=== PATIENT | male | born 1950 | race Caucasian/White ===

== ENCOUNTER 2017-03-13 07:30 | Day surgery (SDC) | payer OTHER ==
[~2017-03-13] VITALS: Ht 180.3 cm; Wt 124.7 kg
[~2017-03-13 07:30] MED LIST: ADVAIR 250/501 DISK IH; APRESOLINE100 MG PO; APRESOLINE50 MG PO; ATORVASTATIN CA20 MG PO; ATORVASTATIN CA40 MG PO; AUGMENTIN875 MG PO; CALCITRIOL0.25 MCG PO; COUMADIN2 MG PO; COZAAR50 MG PO; Cleocin PO; DIGOX250 MCG PO; DIOVAN160 MG PO; FUROSEMIDE40 MG PO; HUMIRA40 MG/0.8 SC; HYDRALAZINE HC100 MG PO; HYDROCHLOROTHIA25 MG PO; JANTOVEN2 MG PO; LOPRESSOR100 M1 PO; LOVAZA1 GM PO; LYRICA150 MG PO; NIFEDIPINE ER30 MG PO; NORVASC10 MG PO; NOVOLIN N100 UNITS/ SC; NOVOLOG PE100 UNITS/ SC; REMICADE10 MG/ML IV; SYMBICORT60 INHALAT IH; VENTOLIN HFA18 GM IH; VITAMIN D31000 UNI2 PO
[2017-03-13 09:00] LABS: INTER. NORMALIZED RATIO 1.5
== END 2017-03-13 18:28 | disposition short-term general hospital (02) ==
LOC: CATH 07:30
PROVIDERS: Internal Medicine Cardiovascular Disease
DX: I25.10 Atherosclerotic heart disease of native coronary artery without angina pectoris (principal); I25.82 Chronic total occlusion of coronary artery; I27.20 Pulmonary hypertension, unspecified; E78.5 Hyperlipidemia, unspecified; I35.0 Nonrheumatic aortic (valve) stenosis; I13.0 Hypertensive heart and chronic kidney disease with heart failure and stage 1 through stage 4 chronic kidney disease, or unspecified chronic kidney disease; I50.9 Heart failure, unspecified; E11.22 Type 2 diabetes mellitus with diabetic chronic kidney disease; N18.9 Chronic kidney disease, unspecified; Z79.01 Long term (current) use of anticoagulants; Z79.4 Long term (current) use of insulin
CPT/HCPCS: 82948; 85347; 85610; C1750; C1769; C1788; C1894; J0461; J1644; J2250; J3010; J7040